=== PATIENT | male | born 1995 | race Caucasian/White ===

== ENCOUNTER 2025-02-10 12:25 | Emergency (ER) | payer MEDICAID, SELFPAY ==
[2025-02-10 12:27] VITALS: BP 156/79; PULSE 76; RESP 20; TEMP 36.5; O2SAT 98
--- NOTE | 2025-02-10 12:52 | DI.RAD_ITS ---
Exam(s) XR HAND RT COMPLETE EXAM: XR HAND RT COMPLETE CLINICAL HISTORY: crush injury. TECHNIQUE: 2D digital imaging was performed. Three views. COMPARISON: No exams were available for comparison FINDINGS: BONES: A comminuted fracture at the distal aspect of the distal phalanx of the index finger. There are multiple small comminuted fragments. There is mild displacement and dorsal angulation of the main fracture. No bony destructive lesion is seen. JOINTS: No dislocation present. SOFT TISSUE: There is an open wound seen beneath the level of the nail bed. IMPRESSION: Comminuted fracture of the tuft of the index finger. Wound beneath the level of the nail bed. DATA REPOSITORY: RADIATION DOSE DELIVERED:
--- NOTE | 2025-02-10 12:57 | W.ED.GENAD ---
Discharge Plan Disposition Patient Disposition: Home Condition: Good Discharge Details Clinical Impression: Open fracture of finger Primary Care Provider: None,None ED Provider: Sima Nunez Home Meds and New Rx's Prescriptions: No Action cephalexin 500 mg capsule 500 mg PO TID 3 Days Qty: 9 0RF Discharge Instructions Instructions: Finger Fracture ED Additional Instructions: As we discussed, you have an open fracture of your right index finger. It is concerning for potential infection which is why you were given antibiotics through the IV here today. Plan is for you to have this formally washed out and closed tomorrow in the operating room with the orthopedic surgeon Dr. Jennings. Please keep the dressing on until you are evaluated by them tomorrow. You should receive a phone call which will give you information on when you are to go to the OR and when he should arrive to the hospital. Please not eat or drink anything after midnight until you hear from them although currently planning for local anesthesia. If you develop any new or worsening symptoms please seek care urgently once again. Referrals: Jesus Jennings MD [ [facility] STAFF PHYSICIAN, Orthopaedic Surgical] Discharge Data Discharge Date/Time-TO BE ENTERED AT DEPARTURE: 02/10/25 14:53 HPI General Date/Time Provider Initiated Documentation: 02/10/25 12:35. Limitations to Documentation: no limitations. Information obtained by: patient, family (significant other) and RN notes reviewed. History of Present Illness 29 year old M presents to the emergency department with the chief complaint of right index and middle finger laceration and crush injury, described as mild (reports mild discofmort, no signficant bleeding), Quality is described as aching, and is localized to the right and upper extremity. Patient reports no radiation. Patient started experiencing this minute(s) and it has been constant. Immobilization improves symptom(s), Movement worsens symptoms . Patient notes no other symptoms.. Patient did receive the following treatments prior to arrival, none Related Data Home Medications ?Medication ?Instructions ?Recorded ?Confirmed cephalexin 500 mg capsule 500 mg PO TID 3 days #9 caps 02/11/25 Previous Rx's ?Medication ?Instructions ?Recorded cephalexin 500 mg capsule 500 mg PO TID 3 days #9 caps 02/11/25 Allergies Allergy/AdvReac Type Severity Reaction Status Date / Time Penicillins AdvReac Intermediate rash Verified 02/11/25 11:06 General Stated Complaint: Orthopedic ALEXANDRA: 3 Review of Systems Constitutional Constitutional: Reports as per HPI and Denies fever(s) Musculoskeletal Musculoskeletal: Reports as per HPI Integumentary/Breasts Skin/Breast: Reports as per HPI Neurologic Neurologic: Reports as per HPI, Denies sensory deficit and Denies paresthesias Exam Const General: cooperative, healthy appearing, comfortable, no acute distress and well developed Nutritional Appearance: average body habitus and well nourished Orientation: alert and awake Resp Effort & Inspection: normal respiratory effort, able to speak in complete sentences and no respiratory distress Cardio Rate: regular rate Rhythm: regular rhythm Skin Trauma: laceration Neuro General: patient alert and patient awake Cognition: normal cognition Speech: speech normal Gait: normal gait Sensory Exam: no sensory deficits noted Extrem Hand/finger images:  1. Irregular laceration that involves the dorsal side of the right index finger, extends around the lateral edges but spares the palmar side. Intact capillary refill, sensation intact. No active bleeding, no rotational deformity. Nail is intact but injury is just at the area of the nail bed. Small abrasion to the dorsal side of right middle finger. No active bleeding Course Vital Signs Vital signs: Vital Signs Temperature 36.5 C 02/10/25 12:27 Pulse 76 02/10/25 12:27 Respiratory Rate 20 02/10/25 12:27 Blood Pressure 156/79 H 02/10/25 12:27 Pulse Oximetry 98 02/10/25 12:27 Temperature 36.5 C 02/10/25 12:27 Temperature Source Oral 02/10/25 12:27 Pulse 76 02/10/25 12:27 Respiratory Rate 20 02/10/25 12:27 Blood Pressure 156/79 H 02/10/25 12:27 Blood Pressure Position Sitting 02/10/25 12:27 Pulse Oximetry 98 02/10/25 12:27 Oxygen Delivery Method Room Air 02/10/25 12:27 Oxygen Flow Rate 0 02/10/25 12:27 Pain Level 0 02/10/25 12:27 Medical Decision Making Patient is a pleasant 29-year-old [id number] male presenting today with chief complaint of right index and middle finger injury. He reports that he was working with a pneumatic hammer when he excellently slipped into an crushed his finger, primarily the right index. He denies any numbness or tingling. States that the pain is fairly well-controlled although he endorses a pressure. Unknown last tetanus. He denies other injury at the time of the incident. On exam, patient appears nontoxic. Resting comfortably no acute distress. he Has laceration to the right index finger just proximal to the nail bed. Neurovascularly intact. Non-tender. No active bleeding. Wound appears deep, ligamentous testing not completed as dorsal side does appear disrupted. Sesnation and capillary refill intact. concerned this may involved the distal phalanx. Superficial abrasion dorsal side fo the right middle finger. this is small, no active bleeding, no deep structure involvement. Tetanus needs to be updated. Will obtain XR of the hand, concerned for bony involvement with the crush nature of the injury. Neurovascularly intact at the digit, concerned about ligament injury as well although injury may be too distal for this involvement. Patient declines analgesics, will hold off on digital block. FINDINGS: BONES: A comminuted fracture at the distal aspect of the distal phalanx of the index finger. There are multiple small comminuted fragments. There is mild displacement and dorsal angulation of the main fracture. No bony destructive lesion is seen. JOINTS: No dislocation present. SOFT TISSUE: There is an open wound seen beneath the level of the nail bed. IMPRESSION: Comminuted fracture of the tuft of the index finger. Wound beneath the level of the nail bed. Consulted with ortho who reviewed imaging and case. Recommend 3g Ancef, soak in betadine and non-adhesive dressing. Plan for surgical fixation and closure tomorrow. Will update tetanus. Patient continues to decline analgesics. Discussed plan from orthopedics with patient and her signficant other. Patient received above IV abx, soaked wounds, non-adhesive applied with bulky dressing. Planning for surgery tomorrow with orthopedics. Return precautions discussed. Discussed supportive care. All of their questions and concerns were addressed, they are in agreement with this plan. PFSH All Active Problems (Updated 02/11/25 @ 07:23 by Jesus Jennings MD) Laceration of right index finger with damage to nail (Acute) Open fracture of distal phalanx of right index finger (Acute 02/10/25) Preventative health care (Acute) Plantar callus (Acute) Obesity (BMI 30-39.9) (Acute) Family History (Updated 12/06/22 @ 15:33 by Leeann Bhandari) Mother No problems noted. Father Hypertension Sister No problems noted. Maternal Grandfather No problems noted. Paternal Grandfather Diabetes Hypertension Maternal Grandmother Asthma Paternal Grandmother Hypertension Social History (Updated 12/26/22 @ 10:31 by Leeann Bhandari) Smoking/Tobacco Use Status: Current-Occasional Tobacco Type: e-cigarettes Quit status: considering quitting Second Hand Exposure: No Smoking risk assessment performed?: Yes Alcohol Intake: never Drug use: Occasionally Substance use type: marijuana Caregiver/Support person: No Household members: family Housing: house Communication Needs: None Do you need help understanding health information?: Often Pets and animals: Yes Pets and animals: cat(s) Sexually active: No Do you think of yourself as: straight/heterosexual Current gender identity: male What is your relationship status?: never How often do you talk on the phone with friends or family?: twice per week How often do you get together with friends or relatives?: once per week How often do you attend gnosticism or rastafarian services?: 1-3 times per year Do you belong to any clubs or organized social groups?: no Panel score (0-1 are the most socially isolated patients): 1 What type of physical activity do you participate in: none Frequency: does not exercise Diamond/Buddhism: No preference Special diamond needs: No Seatbelt use: sometimes Helmet use: Yes Helmet use: sometimes Drive intox or ride w/intox canal driver: No Do you feel safe at home: No Do you feel safe in your relationship?: No
[2025-02-10] MEDS: Diph,Pertuss(Acell),Tet Vac/Pf 0.5 ML SYR IM (14:07)
[2025-02-10] MEDS: ceFAZolin 3,000 MG in Normal Saline 100 ML 200 MG IVPB (14:27)
[2025-02-10 14:52] VITALS: BP 134/80; PULSE 78; RESP 18; TEMP 36.6; O2SAT 97
== END 2025-02-10 14:53 | disposition home or self-care (01) ==
PROVIDERS: Emergency Provider Physician Assistant
DX: S62.630B Displaced fracture of distal phalanx of right index finger, initial encounter for open fracture (principal); F17.290 Nicotine dependence, other tobacco product, uncomplicated; Z23 Encounter for immunization; W31.89XA Contact with other specified machinery, initial encounter; Y93.89 Activity, other specified; Y92.69 Other specified industrial and construction area as the place of occurrence of the external cause
CPT/HCPCS: 90715; 96365; 99284; 73130; J0690

== ENCOUNTER 2025-02-11 10:50 | Day surgery (SDC) | payer MEDICAID, SELFPAY ==
--- NOTE | 2025-02-11 06:53 | W.PM.DSUDISC ---
Date of service: 02/11/25 Discharge Plan Disposition Patient Disposition: Home Condition: Stable Discharge Details Attending Provider: Jesus Jennings Primary Care Provider: None,None Home Meds and New Rx's Prescriptions: New cephalexin 500 mg capsule 500 mg PO TID 3 Days Qty: 9 0RF Discharge Instructions Additional Instructions: Surgery: Right index finger irrigation & debridement of open fracture and nailbed & laceration repairs 02/11/2025 Activity: Gentle use right hand okay. Avoid impacting or injuring the right index fingertip. Encourage increasing motion right index finger to prevent stiffness. Prescriptions: Cephalexin 500 mg take 1 capsule 3 times each day for 3 days to prevent infection. Recommend daily yogurt or probiotic while on antibiotics. You may use rlvs-wig-ycqnwhk Motrin (ibuprofen) as needed for moderate to severe pain up to 800 mg per dose. You may use haaz-bri-jodtaaz Tylenol (acetaminophen) as needed for mild pain up to 1000 mg per dose. These medications may be taken all at once or in different combinations as needed. Dressings: You may loosen/adjust Harjit bandage for comfort. Change dressing on Saturday or Saturday in 2-3 days. If difficult to remove, soak in 50:50 mixture of hydrogen peroxide and water. Change dressing daily with provided supplies (Xeroform, gauze, Kerlix). In between dressing changes, soak/swirl about 10 minutes in 50: 50 mixture of hydroperoxide and water, and then allow to dry. Once the wound is mostly dry, you may cover with a regular Band-Aid. Please keep wound dry until it is clearly healing and mostly dry, about 3-5 days. Follow-up: 10-[address] Jennings. You may follow-up sooner if needed. You may take off the leg compression stockings this evening at home. You may also leave them on a few days longer if you have a history of leg swelling or edema. Let us know right away if you develop any redness, drainage, fevers, chest pain, or trouble breathing. Do not drink alcohol or drive for at least 24 hours after anesthesia. Please call the office during business hours with any questions or concerns. Stand Alone Forms: Bette May (U) Referrals: Jesus Jennings MD [ [facility] STAFF PHYSICIAN, Orthopaedic Surgical] - 02/23/25 11:15 am Discharge Orders Discharge Orders: Discharge Order (Routine); Ordered 02/11/25 Ordered By: Patrick Dai DS: Diagnosis Discharge Diagnosis (1) Open fracture of distal phalanx of right index finger: Status: Acute (2) Laceration of right index finger with damage to nail: Status: Acute
--- NOTE | 2025-02-11 07:21 | OCONE_ITS ---
Date of service: 02/11/25 Assessment and Plan Assessment and plan (1) Open fracture of distal phalanx of right index finger: Status: Acute (2) Laceration of right index finger with damage to nail: Status: Acute Assessment and plan: 29-year-old male with right index finger distal phalanx open fracture through nailbed laceration after crush injury. 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 He was subsequently seen in the ER, x-rays obtained, IV antibiotics provided, and orthopedic consultation requested, as they felt the injury was too severe for bedside management. Plan was to bring to the OR the following day for washout, nailbed laceration repair, and possible pinning. Describes minimal discomfort, last took Motrin last night. After further investigating his injury, he believes it was more likely a laceration on metal than a significant crush injury. 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 Because of the many small injuries he states that his hands did not have completely normal sensation but denies any new or different numbness or tingling status post injury. He is right-hand dominant. History of hypertension, chooses not to treat with oral medications. He admits to daily nicotine and marijuana and vaping. Denies alcohol or illicit drug use. IV antibiotics were given and tetanus was updated yesterday in the ER. Denies recent illness. No additional questions or concerns. Right hand exam: There is a small abrasion over the extensor aspect of the middle finger over the DIP joint. Nontender. No active bleeding. No signs of infection. Demonstrates full flexion, extension, abduction, adduction of this digit. There is a laceration through the index finger proximal nailbed extending about 270 degrees on the radial and ulnar margins with the volar skin intact. Plate in entirety with portion of eponychial fold displaced dorsally. No obvious deformity. Bleeding is well-controlled. Diffuse mild swelling and tenderness. Sensation intact throughout. Demonstrates full abduction and adduction of the index finger. Demonstrates limited flexion at the PIP and DIP joints secondary to pain and swelling. Demonstrates full extension of the PIP joint, near full extension at the DIP joint, likely limited to pain and swelling. No obvious tendon injury. Fingertip well-perfused X-ray of right hand from yesterday, both images and report reviewed, reveals comminuted fracture of the distal aspect of the distal phalanx of the index finger. Mild displacement and volar angulation. Decision to proceed with surgery on 02/11/2025 right index finger open fracture irrigation debridement, nailbed and laceration repairs, possible pinning, and any other indicated procedures. The risks, benefits, and alternatives were thoroughly discussed. Patient was counseled regarding pain management, expected postoperative course, and recovery timeline. All questions were answered. Informed consent was obtained. Agree and understand treatment plan. Follow up 10-14 days after surgery. Breathing comfortably on room air. No coughs or wheezes. 2+ right radial pulse. Regular rate and rhythm. PFSH All Active Problems (Updated 02/11/25 @ 07:23 by Jesus Jennings MD) Laceration of right index finger with damage to nail (Acute) Open fracture of distal phalanx of right index finger (Acute 02/10/25) Preventative health care (Acute) Plantar callus (Acute) Obesity (BMI 30-39.9) (Acute) Family History (Updated 12/06/22 @ 15:33 by Leeann Bhandari) Mother No problems noted. Father Hypertension Sister No problems noted. Maternal Grandfather No problems noted. Paternal Grandfather Diabetes Hypertension Maternal Grandmother Asthma Paternal Grandmother Hypertension Social History (Updated 12/26/22 @ 10:31 by Leeann Bhandari) Smoking/Tobacco Use Status: Current-Occasional Tobacco Type: e-cigarettes Quit status: considering quitting Second Hand Exposure: No Smoking risk assessment performed?: Yes Alcohol Intake: never Drug use: Occasionally Substance use type: marijuana Caregiver/Support person: No Household members: family Housing: house Communication Needs: None Do you need help understanding health information?: Often Pets and animals: Yes Pets and animals: cat(s) Sexually active: No Do you think of yourself as: straight/heterosexual Current gender identity: male What is your relationship status?: never How often do you talk on the phone with friends or family?: twice per week How often do you get together with friends or relatives?: once per week How often do you attend mormonism or jewish services?: 1-3 times per year Do you belong to any clubs or organized social groups?: no Panel score (0-1 are the most socially isolated patients): 1 What type of physical activity do you participate in: none Frequency: does not exercise Юлия/Rastafari: No preference Special юлия needs: No Seatbelt use: sometimes Helmet use: Yes Helmet use: sometimes Drive intox or ride w/intox delivery driver/customer service: No Do you feel safe at home: No Do you feel safe in your relationship?: No
--- NOTE | 2025-02-11 10:45 | ROE_ITS ---
Operative Note Operative Note PRE-OP DIAGNOSIS: 1. Right index open distal phalanx fracture 2. Right index finger nailbed laceration PROCEDURE: Right index finger: 1. Irrigation and debridement of open fracture, CPT #78435; skin, subcu tissue, and bone 2. Nailbed repair, CPT #59367 SURGEON: Jesus Jennings SENIOR PRODUCT ENGINEER: None None ANESTHESIA TYPE: Local By Surgeon Refer to Anesthesia Record ESTIMATED BLOOD LOSS: 2 TOURNIQUET TIME: 0 COMPLICATIONS: None Patient was transported to: same day Patient's condition: stable Indications: Please see complete medical record for details. Findings: Modest contamination right index finger open fracture site. Moderate eponychial fold tissue loss. Procedure Description: In the operating room, the patient was positioned supine on the stretcher. All bony prominences were padded. Preoperative antibiotics were given. The correct patient, procedure, and side of the procedure were all verified prior to beginning. Local anesthesia was induced about the right index finger with 10cc of 1% lidocaine containing epinephrine buffered with 1 cc of sodium bicarbonate. The right hand was prepped and draped in the usual sterile fashion using Betadine for the open wound. Proper analgesia was confirmed. The nail plate and lacerations were inspected and then exaggerated, which extended about 270 degrees from radial to ulnar with intact volar skin bridge. There was some small flecks of contamination and some grease about the fingertip. The fingertip was then soaked in swirled and hydrogen peroxide as a gross debridement. Sponges were then used to cleanse the skin around the fingertip and injury site. The wound was then exaggerated and small bits of contamination were removed from about the skin subcutaneous tissue down to the bone. Some tiny pieces of bone that were loose and nonviable over also removed. [place] tubing was then used to irrigate about 2 L of saline while agitating the wound. The wound was then inspected and very nicely cleaned. A few specks of nonviable tissue and possible contamination were then removed, deep to superficial tissues abraded to healthy bleeding edges, and an additional 1 L of saline irrigated. The fingertip reduced nicely using the nail plate corners as a diaz, which also reapposed the skin lacerations on the sides. There was majority loss of tissue about the eponychial fold more on the radial than the ulnar side. There was a small flap of tissue on top of the nail plate ulnarly that was nonviable and trimmed. 2-0 Monocryl was then used with the needle punctured through the nail plate proximally and then under and up through the distal aspect of the dorsal skin simple sutures at both corners of the nail plate reopposing the nail plate radially to the germinal matrix area and tucking the nail plate in the eponychial fold remnant more ulnarly. 3-0 Monocryl was then used simple interrupted to repair the skin with a couple stitches on both radial ulnar margins. There was good alignment of the tip of the finger with reduced nail plate, which worked well as a splint to the comminuted distal phalanx fracture. No pinning was indicated. The wound was copiously irrigated with saline, tissue margins were reasonably healthy, and Xeroform applied followed by gauze and Kerlix around the index finger and Harjit bandage used to secure these to the palm and hand. The patient tolerated local anesthesia without complication and was transferred out of the operating room in a stable condition. Date of Procedure: 02/11/25
[2025-02-11] MEDS: Lactated Ringers 1,000 ML 30 ML IV (11:18)
[2025-02-11] MEDS: ceFAZolin 3,000 MG in Normal Saline 100 ML 200 MG IV (12:38)
[2025-02-11] MEDS: Lidocaine 1% Multi-Dose W/EPI 1/100,000 50 ML VIAL (12:49)
[2025-02-11] MEDS: Sodium Bicarbonate 50 MEQ/50 ML VIAL (12:57)
[2025-02-11 13:41] VITALS: BP 130/67; PULSE 56; RESP 16; TEMP 36.1; O2SAT 98
== END 2025-02-11 14:13 | disposition home or self-care (01) ==
LOC: SUR 10:52
PROVIDERS: Visit Provider Student in an Organized Health Care Education/Training Program
PROC: (CPT 11012; principal; 2025-02-11 11:30)
DX: S62.630B Displaced fracture of distal phalanx of right index finger, initial encounter for open fracture (principal); X58.XXXA Exposure to other specified factors, initial encounter
CPT/HCPCS: 11012; 11760; J0690; J2004

== ENCOUNTER 2025-02-23 11:20 | Outpatient (CLI) | payer MEDICAID, SELFPAY ==
--- NOTE | 2025-02-23 08:15 | DI.RAD_ITS ---
Exam(s) XR FINGER RT INDEX EXAM: XR FINGER RT INDEX CLINICAL HISTORY: evaluate fx. TECHNIQUE: 2D digital imaging was performed of the right finger. Two views were obtained. PA/AP and lateral views were obtained. COMPARISON: CR XR HAND RT COMPLETE from 02/10/2025 FINDINGS: BONES: There is again seen a comminuted fracture involving the distal phalanx of the right index finger. There is now mild impaction of the fracture compared to the prior examination. No new fracture is seen. No bony destructive lesion is seen. JOINTS: No dislocation present. SOFT TISSUE: Normal. IMPRESSION: Comminuted fracture involving the distal phalanx of the right index finger is again seen. DATA REPOSITORY: RADIATION DOSE DELIVERED:
== END 2025-02-23 11:21 | disposition home or self-care (01) ==
LOC: DIORS 11:20
PROVIDERS: Visit Provider Student in an Organized Health Care Education/Training Program
DX: S62.630B Displaced fracture of distal phalanx of right index finger, initial encounter for open fracture (principal); S61.310A Laceration without foreign body of right index finger with damage to nail, initial encounter
CPT/HCPCS: 73140